=== PATIENT | female | born 1960 | race African-American/Black ===

== ENCOUNTER 2023-03-13 11:28 | Emergency (ER) | payer OTHER ==
[~2023-03-13] VITALS: Ht 165.1 cm; Wt 72.7 kg
[~2023-03-13 11:28] MED LIST: ESCI-8 PO; RISP2TAB45 PO
[2023-03-13] MEDS ORDERED: KETOROLAC TROMETHAMINE 30 MG/ML VIAL IVP ONE (12:15)
[2023-03-13] MEDS ORDERED: AMPICILLIN SODIUM/SULBACTAM NA 3 GM in SODIUM CHLORIDE 0.9% 100 ML IV ONE (12:15)
[2023-03-13] MEDS ORDERED: ACETAMINOPHEN 500 MG TABLET PO ONE (12:15)
[2023-03-13] MEDS ORDERED: MORPHINE SULFATE 2 MG/ML SYRINGE IVP ONE (12:15)
[2023-03-13] MEDS ORDERED: SODIUM CHLORIDE 0.9% 100 ML ONE (12:20)
[2023-03-13] MEDS ORDERED: IOHEXOL 350 MG/ML 100 ML VIAL ONE (12:20)
[2023-03-13 12:34] LABS: BASOPHILS % (AUTO) 0.7 % (0.0-2.0); EOSINOPHILS % (AUTO) 1.5 % (1.0-6.0); HEMATOCRIT 45.7 % (36-46); HEMOGLOBIN 15.1 g/dL (12.0-16.0); LYMPHOCYTES # (AUTO) 1.5 K/uL (1.0-4.8); LYMPHOCYTES % (AUTO) 14.9 % (22.0-44.0); MEAN CORPUSCULAR HEMOGLOBIN 29.8 pg (26.0-34.0); MEAN CORPUSCULAR HGB CONC 33.1 G/dL (31.0-37.0); MEAN CORPUSCULAR VOLUME 90 fL (80-100); MONOCYTES # (AUTO) 0.7 K/uL (0.1-1.0); MONOCYTES % (AUTO) 7.2 % (2.0-9.0); NEUTROPHILS # (AUTO) 7.6 K/uL (1.8-7.7); NEUTROPHILS % (AUTO) 75.7 % (40.0-70.0); PLATELET COUNT (AUTO) 426 K/uL (150-450); RED BLOOD CELL COUNT(AUTO) 5.07 MIL/uL (4.00-5.20)
[2023-03-13 12:42] LABS: CALCIUM, TOTAL 9.3 mg/dL (8.8-10.5); CREATININE 1.36 mg/dL (0.60-1.30); POTASSIUM 3.9 mmol/L (3.5-5.1)
[2023-03-13 12:48] LABS: ALBUMIN 3.8 g/dL (3.4-5.0); BILIRUBIN,TOTAL 0.4 mg/dL (0.1-1.0); TOTAL PROTEIN, SERUM 7.7 g/dL (6.4-8.2)
[2023-03-13 14:42] VITALS: TEMP 98.5
[2023-03-13 15:24] VITALS: BP 133/92; PULSE 82; RESP 18
[2023-03-13] MEDS ORDERED: LIDOCAINE 2%/EPI 1:200,000/PF 10 ML VIAL SQ ONE (16:15)
[2023-03-13] MEDS ORDERED: HYDROCODONE/ACETAMINOPHEN 5-325 MG TABLET PO ONE (17:00)
[2023-03-13] MEDS ORDERED: AMOX1TAB16 PO (17:04)
[2023-03-13] MEDS ORDERED: TRAM-559 PO (17:05)
== END 2023-03-13 17:15 | disposition home or self-care (01) ==
LOC: EMS 11:38
DX: K04.7 Periapical abscess without sinus (principal); F41.9 Anxiety disorder, unspecified; F31.9 Bipolar disorder, unspecified; F17.210 Nicotine dependence, cigarettes, uncomplicated; Z90.710 Acquired absence of both cervix and uterus; Z90.722 Acquired absence of ovaries, bilateral
CPT/HCPCS: 99285; 96365; 70487; 96375; 80053; 85025; 36415; 41800; J1885; J2270; J0295; Q9967; J7050